=== PATIENT | male | born 1940 | race African-American/Black ===

== ENCOUNTER 2020-11-26 11:50 | Outpatient (CLI) | payer OTHER, MEDICARE, MEDICAID, SELFPAY ==
--- NOTE | ~2020-11-26 | XR_ITS ---
EXAMINATION: XR humerus LT DATE: 11/26/2020 12:23 INDICATION: New onset proximal left upper arm pain post fall TECHNIQUE: AP and lateral views of the left humerus as well as coned down lateral view of the elbow w ere obtained. COMPARISON: None FINDINGS: Alignment is normal. No fracture. Mild left acromioclavicular and glenohumeral osteoarthritis. Joint space at the left elbow suboptimally profiled but appears unremarkable. Soft tissues are unremarkabl e. Visualized portions of the left lung are clear. Left pectoral dual-lead cardiac pacemaker. IMPRESSION: 1. Mild left glenohumeral and acromioclavicular osteoarthritis. No acute osseous abnormality. Reviewed, dictated and finalized at location A. IMPRESSION: 1. Mild left glenohumeral and acromioclavicular osteoarthritis. No acute osseou s abnormality.
== END 2020-11-26 11:51 | disposition home or self-care (01) ==
PROVIDERS: PCP Family Medicine; Visit Provider Internal Medicine Adolescent Medicine
DX: M79.622 Pain in left upper arm (principal); M19.012 Primary osteoarthritis, left shoulder
CPT/HCPCS: 73060